=== PATIENT | female | born 1990 | race African-American/Black ===

== ENCOUNTER 2017-07-28 19:31 | Emergency (ER) | payer SELFPAY ==
[2017-07-28 20:55] LABS: URINE HCG POC HCG NEGATIVE (Negative)
[2017-07-28 21:03] LABS: BILIRUBIN,URINE NEGATIVE (NEG); CLARITY,URINE CLEAR; COLOR,URINE YELLOW; GLUCOSE,URINE NEGATIVE (NEG); NITRITE,URINE NEGATIVE (NEG); PH,URINE 6.5; PROTEIN,URINE NEGATIVE (NEG-TRACE)
[2017-07-28 21:17] LABS: BACTERIA,URINE FEW /HPF (0-FEW); RBC,URINE 0 /HPF (0-2); SQUAMOUS EPITHELIAL CELL,UR MANY /LPF; WBC,URINE RARE /HPF (0-4)
[2017-07-28 21:25] LABS: INFLUENZA A PATIENT NEGATIVE (NEGATIVE); INFLUENZA B PATIENT NEGATIVE (NEGATIVE); OBC FLU VALID
[2017-07-28] MEDS: ACETAMINOPHEN 500 MG TABLET PO ×2 (21:33)
[2017-07-28] MEDS: ONDANSETRON ODT 4 MG TAB.RAPDIS. PO ×2 (21:33)
== END 2017-07-28 22:17 | disposition home or self-care (01) ==
LOC: ER 19:31
DX: R11.2 Nausea with vomiting, unspecified (principal)
CPT/HCPCS: 81001; 81025; 87804; 87804-59; 99284; Q0162